=== PATIENT | male | born 1940 | race Caucasian/White ===

== ENCOUNTER 2018-04-03 15:12 | Emergency (ER) | payer MEDICARE ==
[2018-04-03] MEDS ORDERED: predniSONE 20 MG TAB ONE (15:34)
--- NOTE | 2018-04-03 15:59 | RAD ---
CHEST 2 VIEWS: Date: 04/03/18 HISTORY: Cough. COMPARISON: Chest radiograph dated 11/04/15. FINDINGS: The lungs are clear. No pneumothorax or effusion. Cardiac silhouette and mediastinal contours within normal limits. IMPRESSION: No acute intrathoracic abnormality. POS: [id number]
== END 2018-04-03 16:05 | disposition home or self-care (01) ==
LOC: MADERS 15:12
DX: J20.9 Acute bronchitis, unspecified (principal); Z87.891 Personal history of nicotine dependence; I10 Essential (primary) hypertension; I25.2 Old myocardial infarction; E78.00 Pure hypercholesterolemia, unspecified; Z79.899 Other long term (current) drug therapy
CPT/HCPCS: 71046; J7506; J7620

== ENCOUNTER 2023-08-07 12:08 | Inpatient (IN) | payer MEDICARE ==
[2023-08-07 13:05] VITALS: BMI 28.1
[2023-08-07] MEDS ORDERED: Ipratropium/Albuterol 3 ML NEB NEB SCH (15:00)
[2023-08-07] MEDS: Ipratropium/Albuterol 3 ML NEB NEB SCH (16:25)
[2023-08-07] MEDS: Mometasone 100 MCG/PUFF (1 INHALER) INH SCH (20:54)
[2023-08-07] MEDS: Enoxaparin 40 MG (0.4 mL) SYRINGE SC SCH (20:55)
[2023-08-07] MEDS: CO Q-10 CAPSULE 100 MG PO SCH (20:55)
[2023-08-07] MEDS: Atorvastatin Calcium 40 MG TAB PO SCH (20:55)
[2023-08-07] MEDS: guaiFENesin ER 600 MG TAB PO SCH (20:55)
[2023-08-07] MEDS: Carvedilol 12.5 MG TAB PO SCH (20:55)
[2023-08-08] MEDS: Multivitamin W/ Minerals 1 TAB PO SCH (08:52)
[2023-08-08] MEDS: Lisinopril 10 MG TAB PO SCH (08:52)
[2023-08-08] MEDS: Magnesium Chloride 64 MG TAB PO SCH (08:52)
[2023-08-08] MEDS: Cholecalciferol 1,000 UNITS (25 MCG) TAB PO SCH (08:52)
[2023-08-08] MEDS: Aspirin 81 mg Enteric Coated Tablet PO SCH (08:53)
[2023-08-08] MEDS ORDERED: Senokot S 8.6-50 MG TAB PO PRN (10:23)
[2023-08-08] MEDS: Polyethylene Glycol 3350 17 GM Packet PO SCH (10:42)
[2023-08-09] MEDS: HYDROcodone/Acetaminophen 5/325 mg Tablet PO PRN (07:26)
[2023-08-09] MEDS: Polyethylene Glycol 3350 17 GM Packet PER TUBE SCH (08:40)
[2023-08-10] MEDS: Polyethylene Glycol 3350 17 GM Packet PO SCH (08:15)
[2023-08-12] MEDS: Acetaminophen 325 MG TAB PO PRN (21:12)
[2023-08-14 05:34] LABS: Hematocrit 42.5 % (42.0-52.0); Hemoglobin 13.1 g/dL (14.0-18.0); Platelet Count 256 10x3/uL (130-400)
[2023-08-16] MEDS: Melatonin 3 MG TAB PO PRN (20:42)
[2023-08-17 11:30] VITALS: BMI 27.7
[2023-08-17] MEDS: Benzonatate 100 MG CAP PO PRN (20:39)
[2023-08-19] MEDS: Loperamide HCl 2 MG CAP PO PRN (12:48)
[2023-08-21 07:58] VITALS: BP 119/81; TEMP 98.1
== END 2023-08-21 10:24 | DRG 948 ==
LOC: MADMS 12:38
PROVIDERS: ADMIT Family Medicine; ATTEND Family Medicine
DX: R53.81 Other malaise (principal); G45.9 Transient cerebral ischemic attack, unspecified; I48.91 Unspecified atrial fibrillation; I25.10 Atherosclerotic heart disease of native coronary artery without angina pectoris; N40.0 Benign prostatic hyperplasia without lower urinary tract symptoms; Z66 Do not resuscitate; J45.909 Unspecified asthma, uncomplicated; I10 Essential (primary) hypertension; F80.9 Developmental disorder of speech and language, unspecified; E78.5 Hyperlipidemia, unspecified; Z88.0 Allergy status to penicillin; Z79.82 Long term (current) use of aspirin; Z79.899 Other long term (current) drug therapy; I25.2 Old myocardial infarction; Z85.46 Personal history of malignant neoplasm of prostate
CPT/HCPCS: 36415; 71045; 82565; 85014; 85018; 85049; J1650; J7620